=== PATIENT | female | born 1995 | race Caucasian/White ===

== ENCOUNTER → 2017-01-28 | Outpatient (CLI) | payer OTHER | END | disposition home or self-care (01) | LOC: C.PAPS 15:39 | PROVIDERS: ATTEND Obstetrics & Gynecology | DX: Z12.4 Encounter for screening for malignant neoplasm of cervix (principal) ==

== ENCOUNTER 2017-06-28 17:33 | Emergency (ER) | payer OTHER ==
[~2017-06-28] VITALS: Ht 172.7 cm; Wt 79.2 kg
[2017-06-28 17:42] VITALS: Ht 172.7 cm; Wt 79.2 kg
--- NOTE | 2017-06-28 18:33 | EMERGENCY ROOM VISIT NOTE ---
History First contact with patient: 17:34 Chief Complaint: ALCOHOL OVERDOSE Stated Complaint: ETOH History of Present Illness The patient is a 21 year old female who presents to the Emergency Room via EMS with complaints of being sad. The patient states that she was crying on the street due to the fact that she thinks her boyfriend does not love her anymore. He has not "touched her" in 2 months. The patient states she is doing everything to be beautiful for him and he does not want her.. The police took her to the police station. They then called EMS to bring her to the ER for unknown reasons. Patient does admit to drinking alcohol today. She had 3 shots of Edouard Goodman and one beer. The patient states that she is alert and oriented. She denies any nausea or vomiting. The patient states that she has been sad for a while due to her boyfriend not wanting her. The patient denies any suicidal homicidal ideations. The patient states she just wants to go home. Review of Systems 10 system review was performed and was negative unless stated otherwise history of present illness. Past Medical/Surgical History No significant past medical history Social History Smoking Status: Current Some Day Smoker Alcohol Use: occasionally Drug Use: marijuana Marital Status: single Housing Status: lives with roommate Occupation Status: [employer] student Current/Historical Medications No Active Prescriptions or Reported Meds Physical Exam Vital Signs Date Time Temp Pulse Resp B/P (MAP) Pulse Ox O2 Delivery O2 Flow Rate FiO2 06/28/17 17:42 36.6 98 18 136/92 100 Room Air Physical Exam GENERAL: 21-year-old white female appears tearful but in no acute distress. MENTAL Status: Patient is alert and oriented 3. She does not appear intoxicated. She answers questions appropriately. EYES: PERRLA. EOMs intact. NECK: Supple, no lymphadenopathy noted. No carotid bruits noted. LUNGS: Clear auscultation without wheezes rales or rhonchi. CARDIAC: Regular rate and rhythm without murmur. Pulses is full and equal throughout. ABDOMEN: Positive bowel sounds all 4 quadrants. Soft, nontender to palpation without organomegaly or masses. NEURO: Grossly intact Medical Decision & Procedures ED Course The patient was evaluated. The patient does not appear grossly intoxicated. She states that if she can find a phone or have her father called her roommates they will come pick her up. I feel that it is safe for this patient to go home. The patient's father arranged for an Uber to come pick her up. The patient was discharged home in stable condition. Medical Decision The patient does not have any suicidal homicidal ideations therefore I do not feel she needs a psychiatric evaluation. She is just sad over her boyfriend not loving her anymore. [place] Drug Monitoring Program Search Results: patient reviewed within database Medication Reconcilliation Current Medication List: was personally reviewed by me Blood Pressure Screening Patient's blood pressure: Normal blood pressure Impression Primary Impression: Feeling of sadness Additional Impression: Alcohol abuse Departure Information Dispostion Home / Self-Care Condition GOOD Prescriptions No Active Prescriptions or Reported Meds Referrals No Doctor, Assigned (PCP) Forms HOME CARE DOCUMENTATION FORM, IMPORTANT VISIT INFORMATION Patient Instructions My [facility] Additional Instructions Go home and rest. Do not drink alcohol since you are under 21. If you have any suicidal homicidal ideations, return to the ER immediately or seek further medical attention. YOU ARE BEAUTIFUL!!! Problem Qualifiers
[2017-06-28 18:43] VITALS: BP 132/92; PULSE 98; TEMP 36.6; O2SAT 100
== END 2017-06-28 18:44 | disposition home or self-care (01) ==
LOC: EDBD 17:33 → C.EDC 17:34
DX: F41.9 Anxiety disorder, unspecified (principal); F10.129 Alcohol abuse with intoxication, unspecified; F17.200 Nicotine dependence, unspecified, uncomplicated; F12.90 Cannabis use, unspecified, uncomplicated

== ENCOUNTER 2017-08-10 02:11 | Emergency (ER) | payer OTHER ==
[~2017-08-10] VITALS: Ht 172.7 cm; Wt 77.3 kg
[2017-08-10 02:19] VITALS: TEMP 36.9; Ht 172.7 cm; Wt 77.3 kg
[2017-08-10 02:21] VITALS: O2SAT 98
--- NOTE | 2017-08-10 02:45 | EMERGENCY ROOM VISIT NOTE ---
History Report prepared by Ryanibollie: Odette Parker Under the Supervision of: Dr. Deloris Ghosh M.D. First contact with patient: 02:16 Chief Complaint: ALCOHOL OVERDOSE Stated Complaint: ALCOHOL OVERDOSE Nursing Triage Summary: Patient presents BLS with [facility] for evaluation of alcohol overdose and mental health evaluation. Patient states, "My boyfriend wouldn't have sex with me. He hasn't for like 2 weeks. He told me he doesn't love my physically or mentally anymore." PD states patient was found wrestling with her boyfriend in the grass. Scrapes noted to bilateral legs and arms. Patient denies any physical complaints. 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 Per police, the patient was found wrestling with her boyfriend in grass. The patient states that she had been drinking alcohol this evening. Per nursing staff, the patient called her mother to inform her that she wanted to commit suicide because her boyfriend will not let her perform oral sex with him. The patient states her and her boyfriend have been together for a few years, though she has felt awful for about 10 months regarding the relationship. She notes that she feels unattractive. She denies any lip pain. She denies any history of smoking or drug use. She denies any chest pain, shortness of breath, abdominal pain, vomiting, or diarrhea. She reports being 8 days late for her menstrual cycle. HPI is limited secondary to alcohol intoxication. Source of History: patient History Limited By: intoxication Onset: SENIOR RESIDENT CARE DIRECTOR Position: other (general ) Quality: other (alcohol intoxication) Timing: other (persistent) Associated Symptoms: No chest pain, No SOB, No vomiting, No abdominal pain, No diarrhea Note: She notes SI. She denies any lip pain. Review of Systems ROS is limited secondary to alcohol intoxication. Past Medical & Surgical Medical Problems: (1) No Known Active Medical Problems Family History No pertinent family history Social History Smoking Status: Never Smoker Alcohol Use: heavy Drug Use: marijuana Marital Status: in relationship Housing Status: lives with roommate Occupation Status: [employer] student Current/Historical Medications No Active Prescriptions or Reported Meds Allergies Coded Allergies: No Known Allergies (Unverified , 08/10/17) Physical Exam Vital Signs Date Time Temp Pulse Resp B/P (MAP) Pulse Ox O2 Delivery O2 Flow Rate FiO2 08/10/17 06:40 89 18 114/67 98 Room Air 08/10/17 06:30 75 08/10/17 04:59 74 16 104/70 100 Room Air 08/10/17 03:58 76 17 84/54 100 Room Air 08/10/17 02:25 95 08/10/17 02:21 98 Room Air 08/10/17 02:19 36.9 91 18 131/68 94 Room Air Physical Exam Vital signs reviewed. General: Odor of EtOH in the breath, disheveled 22-year-old female. HEENT: Mild scleral injection bilaterally, PERRLA, neck supple, dry mucous membranes. Cardiovascular: Regular rate and rhythm, no extra sounds. Pulmonary: Clear to auscultation bilaterally, normal work of breathing. Abdomen: Soft, nontender, nondistended, positive bowel sounds. Musculoskeletal: Upper and lower extremities atraumatic, no peripheral edema Skin: Warm, dry, no rash. Several superficial abrasions to the upper and lower extremities Neurologic: Patient has slurred speech and is intoxicated. Psychologic: Positive SI. Negative HI. Medical Decision & Procedures Laboratory Results 08/10/17 04:56 Red Blood Count 6.38, Mean Corpuscular Volume 67.7, Mean Corpuscular Hemoglobin 21.8, Mean Corpuscular Hemoglobin Concent 32.2, Mean Platelet Volume 10.1, Neutrophils (%) (Auto) 52.0, Lymphocytes (%) (Auto) 32.4, Monocytes (%) (Auto) 5.6, Eosinophils (%) (Auto) 9.4, Basophils (%) (Auto) 0.3, Neutrophils # (Auto) 5.20, Lymphocytes # (Auto) 3.24, Monocytes # (Auto) 0.56, Eosinophils # (Auto) 0.94, Basophils # (Auto) 0.03 08/10/17 04:56 Test 08/10/17 02:24 08/10/17 04:56 08/10/17 06:35 Human Chorionic Gonadotropin, Qual NEG (NEG) Ethyl Alcohol mg/dL 233.0 mg/dl (0-3) White Blood Count 10.00 K/uL (4.8-10.8) Red Blood Count 6.38 M/uL (4.2-5.4) Hemoglobin 13.9 g/dL (12.0-16.0) Hematocrit 43.2 % (37-47) Mean Corpuscular Volume 67.7 fL (80-100) Mean Corpuscular Hemoglobin 21.8 pg (25-34) Mean Corpuscular Hemoglobin Concent 32.2 g/dl (32-36) Platelet Count 264 K/uL (130-400) Mean Platelet Volume 10.1 fL (7.4-10.4) Neutrophils (%) (Auto) 52.0 % Lymphocytes (%) (Auto) 32.4 % Monocytes (%) (Auto) 5.6 % Eosinophils (%) (Auto) 9.4 % Basophils (%) (Auto) 0.3 % Neutrophils # (Auto) 5.20 K/uL (1.4-6.5) Lymphocytes # (Auto) 3.24 K/uL (1.2-3.4) Monocytes # (Auto) 0.56 K/uL (0.11-0.59) Eosinophils # (Auto) 0.94 K/uL (0-0.5) Basophils # (Auto) 0.03 K/uL (0-0.2) RDW Standard Deviation 39.6 fL (36.4-46.3) RDW Coefficient of Variation 16.6 % (11.5-14.5) Immature Granulocyte % (Auto) 0.3 % Immature Granulocyte # (Auto) 0.03 K/uL (0.00-0.02) Microcytosis PRESENT Anion Gap 8.0 mmol/L (3-11) Est Creatinine Clear Calc Drug Dose 137.0 ml/min Estimated GFR () 141.1 Estimated GFR (Non- 121.8 BUN/Creatinine Ratio 17.5 (10-20) Calcium Level 9.0 mg/dl (8.5-10.1) Total Bilirubin 0.2 mg/dl (0.2-1) Direct Bilirubin < 0.1 mg/dl (0-0.2) Aspartate Amino Transf (AST/SGOT) 156 U/L (15-37) Alanine Aminotransferase (ALT/SGPT) 68 U/L (12-78) Alkaline Phosphatase 90 U/L (45-117) Total Protein 7.9 gm/dl (6.4-8.2) Albumin 4.3 gm/dl (3.4-5.0) Thyroid Stimulating Hormone (TSH) 0.497 uIu/ml (0.300-4.500) Salicylates Level < 1.7 mg/dl (2.8-20) Acetaminophen Level < 2 ug/ml (10-30) Urine Color YELLOW Urine Appearance CLEAR (CLEAR) Urine pH 5.0 (4.5-7.5) Urine Specific [place] 1.020 (1.000-1.030) Urine Protein NEG (NEG) Urine Glucose (UA) NEG (NEG) Urine Ketones NEG (NEG) Urine Occult Blood TRACE (NEG) Urine Nitrite NEG (NEG) Urine Bilirubin NEG (NEG) Urine Urobilinogen NEG (NEG) Urine Leukocyte Esterase NEG (NEG) Urine WBC (Auto) 1-5 /hpf (0-5) Urine RBC (Auto) 0-4 /hpf (0-4) Urine Hyaline Casts (Auto) 0 /lpf (0-5) Urine Epithelial Cells (Auto) 10-20 /lpf (0-5) Urine Bacteria (Auto) NEG (NEG) Urine Opiates Screen NEG (NEG) Urine Methadone, Qualitative NEG (NEG) Urine Barbiturates NEG (NEG) Urine Phencyclidine (PCP) Level NEG (NEG) Ur Amphetamine/Methamphetamine NEG (NEG) MDMA (Ecstasy) Screen NEG (NEG) Urine Benzodiazepines Screen NEG (NEG) Urine Cocaine Metabolite NEG (NEG) Urine Marijuana (THC) NEG (NEG) Laboratory results per my review. ED Course 0240: Past medical records reviewed. The patient was evaluated in room A12B. A complete history and physical examination was performed. 0730: The patient was signed out to Dr. Mathew at shift change. 0738: I spoke with ERIN [employer] salesperson retail Nurse Liason. We discussed the patient 's case. The patient will be further evaluated. Medical Decision Differential diagnosis: Etiologies such as mood disorder, infection, hypoglycemia, electrolyte abnormalities, cardiac sources, intracerebral event, toxicologic, neurologic, as well as others were entertained. This patient was evaluated and appeared to be in no significant distress. Physical examination reveals abrasions to the upper and lower extremities without significant laceration or bleeding. Patient reiterates her feelings of worthlessness and being "unattractive." She states this has been going on for the better part of the year. She is significantly intoxicated and will require a mental health evaluation after she is sober. A 302 has been completed by the police. Patient is aware of the plan and agrees. Case has been signed out to Dr. Mathew at the change of shift pending disposition. Medication Reconcilliation Current Medication List: was personally reviewed by me Blood Pressure Screening Patient's blood pressure: Normal blood pressure Impression Primary Impression: Alcoholic intoxication Additional Impression: Suicidal ideation Scribe Attestation The scribe's documentation has been prepared under my direction and personally reviewed by me in its entirety. I confirm that the note above accurately reflects all work, treatment, procedures, and medical decision making performed by me. Departure Information Dispostion Still a Patient Prescriptions No Active Prescriptions or Reported Meds Referrals No Doctor, Assigned (PCP) Patient Instructions My [facility] Problem Qualifiers
[2017-08-10 05:09] LABS: BASO % 0.3 %; BASO ABS # 0.03 K/uL (0-0.2); EOS % 9.4 %; EOS ABS # 0.94 K/uL (0-0.5); HEMATOCRIT 43.2 % (37-47); HEMOGLOBIN 13.9 g/dL (12.0-16.0); IG# 0.03 K/uL (0.00-0.02); LYMPH % 32.4 %; LYMPH ABS # 3.24 K/uL (1.2-3.4); MEAN CELL VOLUME 67.7 fL (80-100); MEAN CORPUSCULAR HEMOGLOBIN 21.8 pg (25-34); MEAN CORPUSCULAR HGB CONC 32.2 g/dl (32-36); MEAN PLATELET VOLUME 10.1 fL (7.4-10.4); MONO % 5.6 %; MONO ABS # 0.56 K/uL (0.11-0.59); PLATELET COUNT 264 K/uL (130-400); RED CELL DISTRIBUTION WIDTH CV 16.6 % (11.5-14.5); RED CELL DISTRIBUTION WIDTH SD 39.6 fL (36.4-46.3)
[2017-08-10 05:26] LABS: ALBUMIN 4.3 gm/dl (3.4-5.0); ALT/SGPT 68 U/L (12-78); AST/SGOT 156 U/L (15-37); BLOOD UREA NITROGEN 12 mg/dl (7-18); CARBON DIOXIDE 22 mmol/L (21-32); CREATININE 0.71 mg/dl (0.60-1.20); GLUCOSE 89 mg/dl (70-99); POTASSIUM 3.9 mmol/L (3.5-5.1); SODIUM 143 mmol/L (136-145)
[2017-08-10 05:37] LABS: ALKALINE PHOSPHATASE 90 U/L (45-117); TOTAL PROTEIN 7.9 gm/dl (6.4-8.2)
--- NOTE | 2017-08-10 08:32 | EMERGENCY ROOM VISIT NOTE ---
ED Visit Note First contact with patient: 08:31 The patient was taken in signout from Dr. Ghosh at the change of shift. Please see that note for details. The patient was pending psychiatric evaluation. The patient was evaluated by the psychiatric senior case manager. Her intoxication cleared. She was not suicidal or homicidal. She has low self- esteem and is stuck in a difficult relationship. She does not want inpatient psychiatric treatment. There are not grounds for a 302 involuntary commitment. The patient does have a local psychologist. I discussed following up closely with the office. Patient feels safe going home. She knows she is doing well in school. She wishes to continue her studies and finish the semester. I gave my usual and customary discussion regarding this issue. Patient contracts for safety. Return instructions were outlined and the patient was discharged in stable condition.
[2017-08-10 13:32] VITALS: BP 119/81; PULSE 76; O2SAT 99
== END 2017-08-10 14:00 | disposition home or self-care (01) ==
LOC: EDBD 02:11 → C.EDA 02:13
DX: F10.129 Alcohol abuse with intoxication, unspecified (principal); R45.851 Suicidal ideations